=== PATIENT | female | born 1955 | race Caucasian/White ===

== ENCOUNTER 2017-12-30 14:31 | Emergency (ER) | payer BC ==
[2017-12-30 14:36] VITALS: BP 145/86; PULSE 68; RESP 16; TEMP 98.1
[2017-12-30] MEDS ORDERED: DIPH,PERTUS(ACELL)TETVAC-LF 0.5 ML VIAL IM ONE (14:47)
[2017-12-30] MEDS ORDERED: LIDOCAINE 1% INJ 10MG/ML (20 ML MDV) SQ ONE (14:48)
--- NOTE | 2017-12-30 15:12 | XR ---
EXAMINATION TYPE: XR hand limited LT DATE OF EXAM: 12/30/2017 COMPARISON: NONE HISTORY: Laceration TECHNIQUE: 3 views FINDINGS: There is amputation deformity of the little finger at the level of the DIP joint. The age o f this amputation is not clear. There is minimal soft tissue swelling at the stump. I see no acute fr acture. IMPRESSION: Minimal soft tissue swelling at the stump of the amputation at the DIP joint of the littl e finger.
[2017-12-30] MEDS ORDERED: KETOROLAC 30 MG/ML 1 ML VIAL IM STA (15:44)
--- NOTE | 2017-12-30 16:37 | ED ---
Wound/Laceration HPI - General Chief Complaint: Wound/Laceration Stated Complaint: HAND INJURY Time Seen by Provider: 12/30/17 14:41 Source: patient Mode of arrival: ambulatory Limitations: no limitations - History of Present Illness Initial Comments: 62yo female with previous left pinky partial amputation presenting today for cc of left pinky injury. Pt states that 1/2 hour prior to presentation pt was splitting wood when a piece of the wood flung at her left small finger striking the tip, causing skin tears/superficial lacerations. Pt was denies any numbness , tingling, muscles weakness, inability to bend at the PIP joint, injury to head /face or any other extremity. Pt does not know her last tetanus vaccination. Remainder of ROS (-) patient denies any recent fever, chills, shortness of breath, chest pain, back pain, abdominal pain, nausea or vomiting, numbness or tingling, dysuria or hematuria, constipation or diarrhea, headaches or visual changes, or any other complaints. Upon arrival pt appears well, she has rag held against finger/applying pressure. Pt denies taking medications prior to arrival. VS within acceptable limits. - Related Data Previous Rx's Medication Instructions Recorded Albuterol Inhaler [Ventolin Hfa 1 - 2 puff INHALATION Q6HR PRN #1 07/25/14 Inhaler] inhaler Ipratropium Porter [Atrovent Hfa] 2 puff INHALATION TID #1 inhaler 07/25/14 Cephalexin [Keflex] 500 mg PO Q8HR 5 Days #15 cap 12/30/17 Ibuprofen 800 mg PO Q8H PRN 7 Days #21 tablet 12/30/17 Allergies Allergy/AdvReac Type Severity Reaction Status Date / Time No Known Allergies Allergy Verified 12/30/17 14:36 Review of Systems ROS Statement: Those systems with pertinent positive or pertinent negative responses have been documented in the HPI. ROS Other: All systems not noted in ROS Statement are negative. Constitutional: Denies: fever, chills, night sweats ENT: Denies: ear pain, throat pain Respiratory: Denies: cough, dyspnea Cardiovascular: Denies: chest pain, palpitations Endocrine: Denies: fatigue Gastrointestinal: Denies: abdominal pain, nausea, vomiting, diarrhea, constipation, hematemesis Genitourinary: Denies: urgency, dysuria, frequency, hematuria, discharge Musculoskeletal: Denies: back pain Skin: Reports: as per HPI (skins tears, lacerations of the left pinky finger) Neurological: Denies: headache, weakness, numbness, paresthesias, confusion, abnormal gait Past Medical History Past Medical History: No Reported History History of Any Multi-Drug Resistant Organisms: None Reported Additional Past Surgical History / Comment(s): Dental/oral surgery Past Anesthesia/Blood Transfusion Reactions: No Reported Reaction Past Psychological History: No Psychological Hx Reported Smoking Status: Never smoker Past Alcohol Use History: None Reported Past Drug Use History: None Reported - Past Family History Father Family Medical History: No Reported History Mother Family Medical History: No Reported History General Exam - General Exam Comments Initial Comments: General: The patient is awake and alert, in no distress, and does not appear acutely ill. Eye: Pupils are equal, round and reactive to light, extra-ocular movements are intact. No nystagmus. There is normal conjunctiva bilaterally. No signs of icterus. Ears, nose, mouth and throat: There are moist mucous membranes and no oral lesions. Cardiovascular: There is a regular rate and rhythm. No murmur, rub or gallop is appreciated. Respiratory: Lungs are clear to auscultation, respirations are non-labored, breath sounds are equal. No wheezes, stridor, rales, or rhonchi. Musculoskeletal: Normal ROM at the PIP and MCP joints of the left hand including the left small finger, no tenderness. Strength 5/5. Sensation intact. Radial pulses equal bilaterally 2+. Neurological: A&O x 3. CN II-XII intact, There are no obvious motor or sensory deficits. Coordination appears grossly intact. Speech is normal. Skin: Skin is warm and dry and no rashes. Superifical skin tears of the left small finger, small superficial lacerations with edema. Mild active bleeding. No signs of deeper injury/tendon or bone exposure. no evidence of FB. Psychiatric: Cooperative, appropriate mood & affect, normal judgment. Limitations: no limitations Course Vital Signs 12/30/17 14:34 Temperature 98.1 F Pulse Rate 68 Respiratory 16 Rate Blood Pressure 145/86 O2 Sat by Pulse 100 Oximetry Medical Decision Making - Medical Decision Making Pt given toradol for pain mgmt. Tetanus updated. XR revealed previous amputation but no acute fracture.Injury was mostly skin tears. Lacerations were superficial and edematous. I do no feel wound edges would be able to be approximated using suture. Pt agreed. Wound was extensively irrigated, bacitracin and sterile bandage applied. pt stated on keflex for infection ppx. In addition pt was instructed to f/u with primary care provider in 1-2 days. Signs and symptoms of infection were discussed at length the patient. Patient verbalizes understanding of plan. At this time feel patient is stable for discharge. Case discussed with Dr. Fields who agreed with impression and plan. Proper ound care discussed with patient, pt was discharged in stable condition. Return parameters discussed at length with patient prior to discharge, patient verbalizes understanding. Disposition Clinical Impression: Soft tissue injury of finger Disposition: HOME SELF-CARE Condition: Good Instructions: Finger Laceration (ED) Additional Instructions: Please use medication as discussed. Please follow-up with family doctor in the next 2 days for wound check. Please return to emergency room if the symptoms increase or worsen or for any other concerns. Prescriptions: Cephalexin [Keflex] 500 mg PO Q8HR 5 Days #15 cap Ibuprofen 800 mg PO Q8H PRN 7 Days #21 tablet PRN Reason: Pain Is patient prescribed a controlled substance at d/c from ED?: No Referrals: None,Stated [Primary Care Provider] - 1-2 days [facility] [NON-STAFF] - 1-2 days Time of Disposition: 16:37
== END 2017-12-30 16:46 | disposition home or self-care (01) ==
LOC: EC 14:31
DX: S61.217A Laceration without foreign body of left little finger without damage to nail, initial encounter (principal); Z23 Encounter for immunization; W22.8XXA Striking against or struck by other objects, initial encounter; Y92.89 Other specified places as the place of occurrence of the external cause; Y93.89 Activity, other specified
CPT/HCPCS: 99283; 96372; 90471; 73120; 90715; J2001; J1885

== ENCOUNTER 2018-07-25 11:37 | Emergency (ER) | payer BC ==
[2018-07-25 11:43] VITALS: RESP 18
--- NOTE | 2018-07-25 12:17 | ED ---
Lower Extremity Injury HPI - General Chief Complaint: Extremity Injury, Lower Stated Complaint: fall, heel/knee pain Time Seen by Provider: 07/25/18 11:45 Source: patient, RN notes reviewed Mode of arrival: wheelchair Limitations: physical limitation - History of Present Illness Initial Comments: 63-year-old female presents emergency Department chief complaint of a fall. Patient states she is in the back of her Truck states that she slipped falling onto the ground. Patient states she landed on her feet. She primarily complains of left foot and ankle pain and right knee pain. She states is only painful when she weightbears. Denies any head injury no loss conscious. Denies any back pain, neck pain. - Related Data Home Medications Medication Instructions Recorded Confirmed Vitamin E 1,000 unit PO DAILY 07/25/18 07/25/18 Previous Rx's Medication Instructions Recorded Hydrocodone/Acetaminophen [[place] 1 tab PO Q6HR PRN #12 tab 07/25/18 5-325] Allergies Allergy/AdvReac Type Severity Reaction Status Date / Time No Known Allergies Allergy Verified 07/25/18 11:58 Review of Systems ROS Statement: Those systems with pertinent positive or pertinent negative responses have been documented in the HPI. ROS Other: All systems not noted in ROS Statement are negative. Past Medical History Past Medical History: No Reported History History of Any Multi-Drug Resistant Organisms: None Reported Additional Past Surgical History / Comment(s): Dental/oral surgery Past Anesthesia/Blood Transfusion Reactions: No Reported Reaction Past Psychological History: No Psychological Hx Reported Smoking Status: Never smoker Past Alcohol Use History: None Reported Past Drug Use History: None Reported - Past Family History Father Family Medical History: No Reported History Mother Family Medical History: No Reported History General Exam Limitations: physical limitation General appearance: alert, in no apparent distress Head exam: Present: atraumatic, normocephalic, normal inspection Respiratory exam: Present: normal lung sounds bilaterally. Absent: respiratory distress, wheezes, rales, rhonchi, stridor Cardiovascular Exam: Present: regular rate, normal rhythm, normal heart sounds. Absent: systolic murmur, diastolic murmur, rubs, gallop, clicks Extremities exam: Present: other (Left ankle there is moderate swelling to the lateral malleoli region, tenderness with palpation and tenderness to lateral foot there is moderate heel tenderness. Neurovascular intact with equal pedal pulses, no proximal tib-fib tenderness on the left. Right knee full range of motion minimal tenderness no ecchymosis no swelling noted there is no laxity there is no tenderness above or below the right knee) Neurological exam: Present: alert, oriented X3, CN II-XII intact Skin exam: Present: warm, dry, intact, normal color. Absent: rash Course Vital Signs 07/25/18 11:41 Temperature 98.1 F Pulse Rate 70 Respiratory 18 Rate Blood Pressure 108/60 O2 Sat by Pulse 99 Oximetry Procedures - Orthopedic Splinting/Casting Injury #1 Side: left Lower Extremity Injury Location: short leg, ankle, foot Lower Extremity Immobilizer: posterior splint, Devries dressing, synthetic pre- padded splint Medical Decision Making - Medical Decision Making 63-year-old female presented for fall, left ankle, right knee pain. Patient has a calcaneus fracture. I did discuss the case with [facility] at [facility] in which the patient may follow up with Dr. Spain. Patient will be placed in a splint, given crutches and instructed to be nonweightbearing. Return parameters were discussed Disposition Clinical Impression: Calcaneus fracture, left, Knee sprain Disposition: HOME SELF-CARE Condition: Stable Instructions (If sedation given, give patient instructions): Foot Fracture in Adults (ED) Additional Instructions: Remain nonweightbearing. Please return to the Emergency Department if symptoms worsen or any other concerns. Prescriptions: Hydrocodone/Acetaminophen [[place]field 5-325] 1 tab PO Q6HR PRN #12 tab PRN Reason: Pain Is patient prescribed a controlled substance at d/c from ED?: Yes When asked, does pt state using other controlled substances?: No If prescribed controlled substance>3 days was MAPS reviewed?: Prescribed <3 Days If opioid is for acute pain is fill amount 7 days or less?: Yes If Rx opioid, was Start Talking consent form obtained?: Yes Referrals: Oscar Byrd DO [Primary Care Provider] - 1-2 days Robert Spain MD [Medical Doctor] - 1-2 days Time of Disposition: 13:51
--- NOTE | 2018-07-25 12:38 | XR ---
EXAMINATION TYPE: XR foot complete LT, XR ankle complete LT DATE OF EXAM: 07/25/2018 CLINICAL HISTORY: Left foot and ankle pain after fall TECHNIQUE: Frontal, lateral and oblique images of the left ankle and foot are obtained. COMPARISON: None. FINDINGS: There is an acute comminuted calcaneal fracture with intra-articular extension at the ante rior and posterior talocalcaneal joint spaces. There is up to 3 mm diastases of the most dorsal and c ranial aspect of the fracture. Overlying soft tissue swelling is seen. No radiopaque foreign body. Sm all plantar enthesophyte. Joint of the talotibial joint space maintains alignment. No additional frac ture is seen in the ankle. Pronounced soft tissue swelling over the lateral malleolus and to a lesser degree of the medial malleolus suggests underlying soft tissue/ligamentous and/or tendinous injury. Findings also suggest a medial talar dome osteochondral defect with lucency. IMPRESSION: 1. Acute comminuted intra-articular calcaneal fracture extending into the posterior talocalcaneal tono nt with approximately 3 mm maximal diastases and comminution. This also extends into the anterior donna ocalcaneal joint. Overlying soft tissue swelling is seen. 2. Osteochondral defect of the medial talar dome. 3. Pronounced soft tissue swelling of the ankle joint and underlying ligamentous/tendinous injury.
--- NOTE | 2018-07-25 12:39 | XR ---
EXAMINATION TYPE: XR knee complete RT DATE OF EXAM: 07/25/2018 CLINICAL HISTORY: Right knee pain after fall TECHNIQUE: Three views of the right knee are obtained. COMPARISON: None. FINDINGS: There is no acute fracture/dislocation evident in right knee. The tri-compartment joint s paces are preserved with alignment however there are small tricompartmental osteophytes noted. The o verlying soft tissue appears unremarkable. Diffuse osseous demineralization is seen. IMPRESSION: There is no acute fracture or dislocation in the right knee. Mild tricompartmental arthr osis and diffuse osseous demineralization.
--- NOTE | 2018-07-25 13:12 | CT ---
EXAMINATION TYPE: CT foot LT wo con DATE OF EXAM: 07/25/2018 COMPARISON: 07/25/2018 HISTORY: Fracture to left heel CT DLP: 82.6 mGycm Automated exposure control for dose reduction was used. Axial images were obtained at 2 mm thick sections. Reconstructed images are reviewed in the coronal a nd sagittal planes. FINDINGS: There is a comminuted fracture through the calcaneus. This extends to the posterior calcaneus superio rly inferior. Additional longitudinal fracture extends anterior to the calcaneal cuboid junction akira cular surface. Smaller fracture fragments are also present on these major fracture lines. No additional fractures are evident. The joint spaces are largely preserved. There is some loss of alcides int space at the anterior lateral calcaneal cuboid junction. There may be some impaction of the cuboi d on the calcaneus. Example image 201 image 37. 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 IMPRESSION: COMMINUTED FRACTURE WITH AN OBLIQUE FRACTURE FROM THE SUPERIOR POSTERIOR CALCANEUS TO THE MID PLANTAR CALCANEUS. A LONGITUDINAL FRACTURE EXTENDS TO THE CALCANEAL CUBOID JUNCTION WELL.
[2018-07-25 14:32] VITALS: BP 107/64; PULSE 74; TEMP 98.2
== END 2018-07-25 14:32 | disposition home or self-care (01) ==
LOC: EC 11:37
DX: S92.002A Unspecified fracture of left calcaneus, initial encounter for closed fracture (principal); S83.91XA Sprain of unspecified site of right knee, initial encounter; Z79.899 Other long term (current) drug therapy; V89.9XXA Person injured in unspecified vehicle accident, initial encounter; Y92.009 Unspecified place in unspecified non-institutional (private) residence as the place of occurrence of the external cause
CPT/HCPCS: 29515; 99283

== ENCOUNTER → 2023-05-08 | Outpatient (CLI) | payer MEDICARE ==
--- NOTE | 2023-05-08 12:09 | BD ---
EXAMINATION TYPE: Axial Bone Density DATE OF EXAM: 05/08/2023 CLINICAL HISTORY: 67 years old Female. ICD-10 CODE: Z78.0 ASYMPTOMATIC MENOPAUSAL STATE Height: 64.7 in Weight: 147 lbs FRAX RISK QUESTIONS: History of Fracture in Adulthood: lt heel age 62 RISK FACTORS HISTORY OF: EXAM MEASUREMENTS: Bone mineral densitometry was performed using the [employer] System. Bone mineral density as measured about the Lumbar spine is: ----- L1-L4(G/cm2): 0.908 T Score Values are as follows: ----- L1: -2.3 ----- L2: -3.2 ----- L3: -1.4 ----- L4: -2.4 ----- L1-L4: -2.3 Z Score Values are as follows: ----- L1: -0.8 ----- L2: -1.6 ----- L3: 0.2 ----- L4: -0.8 ----- L1-L4: -0.7 Bone mineral density has: Decreased -18.6% since study of: 09/12/2002 Bone mineral density about the R hip (g/cm2): 0.743 Bone mineral density about the L hip (g/cm2): 0.791 T Score values are as follows: -----R Neck: -2.2 -----L Neck: -1.7 -----R Total: -2.1 -----L Total: -1.7 Z Score values are as follows: -----R Neck: -0.6 -----L Neck: -0.1 -----R Total: -0.7 -----L Total: -0.4 Bone mineral density has: Decreased -24.3% since study of: 09/12/2002 FRAX%s: The graph provided illustrates a 20.7% chance for a major osteoporotic fx and a 4.4% chance f or the hips probability for fx in 10 years time. IMPRESSION: Osteopenia (T Score between -2.5 and -1). There is slightly increased risk of fracture and the patient may be considered for treatment. Re-Screen 2-5 years. NOTE: T-SCORE=SD OF THE YOUNG ADULT MEAN.
== END | disposition home or self-care (01) ==
LOC: RADBDWWP 07:02
PROVIDERS: ATTEND Family Medicine
DX: M81.0 Age-related osteoporosis without current pathological fracture (principal); M85.89 Other specified disorders of bone density and structure, multiple sites; Z78.0 Asymptomatic menopausal state
CPT/HCPCS: 77080